=== PATIENT | male | born 1945 | race Caucasian/White ===

== ENCOUNTER → 2019-06-15 11:54 | Outpatient (CLI) | payer MEDICARE, SELFPAY ==
[2019-06-15 12:51] LABS: Add Manual Diff / Slide Review NO; Basophils Absolute Auto 0 /uL (0-100); Basophils Percent Auto 0.1 % (0-2); Eosinophils Absolute Auto 0 /uL (0-450); Hematocrit 36.7 % (41-53); Hemoglobin 12.1 g/dL (13.5-17.5); Lymphocytes Absolute Auto 1300 /uL (1100-4500); Lymphocytes Percent Auto 24.3 % (25-40); Mean Corpuscular HGB Conc 32.9 % (30-36); Monocytes Absolute Auto 400 /uL (0-900); Neutrophils Absolute Auto 3800 /uL (1500-7000); Neutrophils Percent Auto 68.6 % (50-75); Platelet Count 191 X10^3/uL (150-400); Red Blood Cell Count 4.32 X10^6/uL (4.5-5.9); Red Cell Distribution Width 14.5 % (11.6-14.8); White Blood Cell Count 5.5 X10^3/uL (4.5-11.0)
[2019-06-15 13:09] LABS: Hemoglobin A1C% w Est Avg Glu 6.9 % (4.0-6.0)
[2019-06-15 13:31] LABS: Carbon Dioxide 32 mmol/L (22-32); Chloride 102 mmol/L (98-107); HEMOLYSIS < 15 (0-50); Potassium 4.5 mmol/L (3.4-5.1); Sodium 141 mmol/L (137-145)
== END ==
PROVIDERS: PCP Student in an Organized Health Care Education/Training Program; Visit Provider Student in an Organized Health Care Education/Training Program
DX: R73.9 Hyperglycemia, unspecified (principal); Z01.812 Encounter for preprocedural laboratory examination; M17.12 Unilateral primary osteoarthritis, left knee
CPT/HCPCS: 36415; 80051; 83036; 85025

== ENCOUNTER 2019-09-02 10:55 | Inpatient (IN) | payer MEDICARE, SELFPAY ==
[2019-08-20 09:44] VITALS: BMI 37.3
[2019-09-02] VITALS (18 sets, daily range): BP systolic 125–187; BP diastolic 64–101; PULSE 73–97; RESP 12–18; TEMP 36.4–37.2; O2SAT 93–97; BMI 37.3
--- NOTE | 2019-09-02 10:45 | SUR.PREOP ---
Pt called stating that his surgery time and that he is a diabetic. CBG was 65 and pt had not had any long acting insulin since 09/01. After speaking with Dr Hogan, he okay'd pt to have some hard candy to get his blood sugars up for surgery.
--- NOTE | 2019-09-02 11:33 | PM.PREOP ---
Pre-operative Note Interval Note History & Physical reviewed/Exam performed by Physician: Yes Changes to H&P: No
--- NOTE | 2019-09-02 11:33 | PM.OP.1 ---
Operative Date/Time/Diagnoses Date of procedure: 09/02/19 Time of procedure: 14:46 Pre-op diagnosis: Left knee osteoarthritis Post-op diagnosis: same Procedure & Clinicians Procedure: Left total knee arthroplasty Same procedure as scheduled: Yes Indications: The patient presents today for total knee arthroplasty after failure of conservative treatment. The nature of the procedure including the risks and benefits, alternatives, postoperative course and expected outcome were discussed and all questions answered. Consent was obtained. Operative site confirmed and marked. Surgeon: Uriel Angeles Telephonic Nurse Case Manager: Gordon White Anesthesia Type: General, Spinal and Local Operative Notes Findings: Severe osteoarthritis with varus alignment. Closure Type: primary Specimen(s): none sent Prosthetic devices, grafts, tissues, transplants, or devices: Gatito Persona TKA 11 CR femoral component, F stemmed tibial component, 10 MC polyethylene tray and 35 mm all poly patella. Applied: implant(s) Estimated Blood Loss (mL): 20 Blood products transfused: none Tourniquet time (min): 60 Procedure in detail: The patient was taken to the operative suite and placed under spinal and general anesthesia. The patient was given prophylactic antibiotics prior to surgery. The patient was also given tranexamic acid, 1 g, just prior to surgery for postoperative hemostasis. The lateral knee was prepped and the joint injected with 20 mL of 1% Lidocaine with epinephrine. The knee was then prepped and draped in usual sterile fashion. The leg was exsanguinated with an Esmarch dressing and the tourniquet raised to 250 torr. A 15 cm anterior incision was made. Next a medial trivector arthrotomy was made. The extensor mechanism was marked to ensure accurate repair. Initial exposing dissection was carried out medially and laterally. The knee was then extended and the patellar thickness was measured and a cut made removing approximately 9 mm of bone. The patella was then sized and drilled. Some excess lateral bone was excised and the patellofemoral ligament released. The knee was then flexed and the intramedullary femoral guide kuldeep placed. The distal femoral cut was made in 5 ? of valgus at the + 0 position. The femoral size was measured and the appropriate cutting block was then placed and the anterior, posterior and chamfer cuts made. The extramedullary tibial alignment kuldeep was then placed. The guide was set to remove approximately 10 mm from the less affected lateral side. The proximal tibial cut was then made with an oscillating saw. All meniscus and bony debris was then removed. Posterior femoral osteophytes removed with a curved osteotome. Flexion extension gaps were checked. The knee was somewhat tight medially in flexion and extension this was corrected with percutaneous release of the MCL with an 18 gauge needle.. The soft tissues were then injected with a combination of 20 mL of half percent Marcaine with epinephrine and 20 mL of Exparel. The trial components were then placed. The knee seemed somewhat tight transitioning into flexion with initial range of motion. With the PCL and popliteus were released which seem to correct the motion. The knee was then ranged and went into full extension and flexion beyond 120?. There was good medial-lateral balance throughout motion. Patellar tracking was excellent. The trial components were removed and the knee was cleansed with Pulsavac irrigation and dried. The final components were cemented with high viscosity vacuum mixed bone cement with antibiotics. The joint was filled with a dilute Betadine solution. The knee was held in extension and the patellar clamped until the cement was fully cured. The knee was then irrigated. The extensor mechanism was closed with 5 interrupted #1 Vicryl sutures and a running Quill suture at 90 degrees of flexion. The joint was then injected with a combination of 1 g of tranexamic acid and 20 mL of quarter percent Marcaine with epinephrine. The subcutaneous tissue was closed with 2 0 Vicryl. The skin was closed with jessi and surgical adhesive. An Aquacel dressing and Adan wrap were then applied. The patient tolerated the procedure well and was returned to recovery room in good condition. Complications: none Post-operative Condition: stable Disposition: PACU Plan for aftercare: [facility] protocol for total knee arthroplasty.
--- NOTE | 2019-09-02 11:47 | DI.RAD.S_ITS ---
PROCEDURE: XR KNEE LT 1TO2V INDICATIONS: post op TKA TECHNIQUE: 2 view(s) of the knee acquired. COMPARISON: [facility], , KNEE 1-2 VIEWS RIGHT, 09/05/2009, 10:26. FINDINGS: Bones: Patient is status post knee joint arthroplasty. Hardware components are in expected positions. Visualized bony structures are intact. Soft tissues: Overlying postoperative changes are noted. IMPRESSION: Expected postoperative appearance Dictated by: David Juárez M.D. on 09/02/2019 at 15:55 Approved by: David Juárez M.D. on 09/02/2019 at 15:55
[2019-09-02] MEDS: LACTATED RINGERS 1,000 ML 42 ML IV (12:15)
[2019-09-02] MEDS: DEXTROSE 5% WATER 500 ML 21 ML IV (12:28)
--- NOTE | 2019-09-02 12:59 | SUR.PREOP ---
Block start time [1237] . Monitoring initiated and maintained throughout procedure. Oxygen and medications given per anesthesiologist instructions. Patient remained stable throughout procedure, no adverse reactions noted. Block end time [1250].
[2019-09-02] MEDS: CEFAZOLIN 2 GM/100 ML FROZ.PIGGY IV ×2 (13:05→21:22)
--- NOTE | 2019-09-02 13:42 | SUR.OPER ---
Supine on padded OR bed. Pillow under head, arms secured on padded armboards <90 degree abduction. Safety belt across torso. Non-operative leg secured with tape over blanket over lower leg. Operative leg secured in Samy positioner. Foam padded brace at thigh of operative leg.
[2019-09-02] MEDS: LIDOCAINE 1% W/EPI 20 ML INJ (13:48)
[2019-09-02] MEDS: EPINEPHRINE INJ (13:51)
[2019-09-02] MEDS: BUPIVACAINE 0.25% INJ (13:51)
[2019-09-02] MEDS: SODIUM CHLORIDE INJ (13:51)
[2019-09-02] MEDS: BUPIVACAINE 0.25% W/ EPI (PF) 40 ML, BUPIVACAINE LIPOSOME 266 MG, SODIUM CHLORIDE 0.9% ... INJ (13:52)
[2019-09-02] MEDS: SODIUM CHLORIDE IRRIG SOLUTION 250 ML, POVIDONE-IODINE SPONGE STICKS 1 APPLIC IRR (13:53)
[2019-09-02] MEDS: TRANEXAMIC ACID 1,000 MG VIAL 1000 MG INJ (13:58)
--- NOTE | 2019-09-02 14:07 | P.PCN_ITS ---
Procedures Date/Time Date of procedure: 09/02/19 Time of procedure: 12:45 General Procedure description: Ultrasound guided adductor canal nerve block for post op pain control after left total knee arthroplasty by Dr. Angeles. Risk and kim efits of procedure discussed with patient. ASA monitoring applied to patient. O2 given via nasal cannula. 1 mg Versed and 50 mcg fentanyl given for procedural sedation. Skin site was prepped with chlorhexidine and allowed to fully dry. Sterile gloves, mask, hat and probe cover were used to maintain sterility. 2% lidocaine and 30ga needle was used to make a small skin wheal at needle insertion site. Under ultrasound guidance, a 21ga 100mm Pajunk needle was directed into the adductor canal near femoral artery and saphenous nerve at the level of mid thigh. Patient reported no parasthesias. After negative aspiration, 20 mL 0.5% ropivicaine and 10mg dexamethasone were injected around saphenous ne rve. Patient tolerated procedure well.
--- NOTE | 2019-09-02 14:16 | SUR.PREOP ---
After opening Celabrix, lyrica and tylenol pt stated he was unable to take pills. Pt denies structure or issues with swallowing except for pills and stated he has always been like this since he was a child. He can take them crushed or with applesauce just not whole with water. Lyrica was wasted per protocol. PACU advised that pt may want to take post procedure.
--- NOTE | 2019-09-02 15:40 | SUR.PHASEI ---
Patient BG 97 on arrival in PACU. Per the anesthesiologist, patient BG dropped to 60 in OR. Patient has implanted device that measures BG with meter that reads every 10 minutes.
--- NOTE | 2019-09-02 15:58 | SUR.PHASEI ---
Patients' monitor and [facility] BG monitor do not correlate, but patient is shivering and sweating and states he feels symptomatic> Per patient monitor: 70; per [facility] 107 BG.
--- NOTE | 2019-09-02 17:07 | PC.NURSE ---
1650: Patient admitted to room 217 from PACU with RN, awake, alert, and pleasant. Upon arrival, BG 130 mg/dl via implanted monitor. Oriented to room, environment, and plan of care. Call light within reach. Will continue to monitor blood glucose closely including s/sx of hypo and hyperglycemia.
[2019-09-02] MEDS: LACTATED RINGERS 1,000 ML 125 ML IV (17:25)
[2019-09-02] MEDS: ACETAMINOPHEN 325 MG TABLET 975 MG PO ×2 (17:27→21:22)
--- NOTE | 2019-09-02 17:29 | PC.NURSE ---
09/02 Patient had his own blood sugar port implant and machine. RN aware.
[2019-09-02] MEDS: INSULIN ASPART 100 UNIT/ML INSULN PEN SUBCUT ×2 (19:08→21:21)
[2019-09-02] MEDS: ATORVASTATIN 20 MG TABLET PO (21:22)
[2019-09-02] MEDS: TERAZOSIN 5 MG CAPSULE 10 MG PO (21:23)
[2019-09-02] MEDS: METOPROLOL IR 25 MG TABLET PO (21:24)
[2019-09-03] VITALS (7 sets, daily range): BP systolic 139–152; BP diastolic 66–77; PULSE 84–93; RESP 16–20; TEMP 36.2–37.3; O2SAT 94–98
[2019-09-03] MEDS: CEFAZOLIN 2 GM/100 ML FROZ.PIGGY IV (04:38)
[2019-09-03 07:10] LABS: Hematocrit 36.4 % (41-53); Hemoglobin 12.3 g/dL (13.5-17.5)
--- NOTE | 2019-09-03 07:36 | PM.PNPO.1 ---
Subjective Subjective Date Patient Seen: 09/03/19 Time Patient Seen: 07:36 Interval history: POD #1 s/p L TKA with Dr. Angeles. Patient has been mobilizing with PT this morning. His pain is well controlled. He lives at home alone. He is diabetic. Exam Vital Signs (past 8 hours): - 09/03/19 04:34 Temperature 97.1 F L Pulse Rate 88 Respiratory Rate 16 Blood Pressure 139/75 Pulse Oximetry 96 Oxygen Delivery Method Room Air Oxygen Flow Rate 0 Narrative Exam Narrative: Patient lying in bed in NAD. Alert orient x3. Calves are soft, compressible, nontender bilaterally. Pulses are symmetrical. Sensation intact light touch throughout bilateral lower extremities. He is able actively dorsiflex plantar flex. Objective Labs Result Diagrams: 09/03/19 06:35 Labs: Laboratory Results - last 24 hr 09/03/19 06:35 Hgb 12.3 L Hct 36.4 L Assessment & Plan Post-op Postoperative Procedures: Procedures Operation Date: 09/02/19 13:15 Actual Procedures Side Surgeon p Total Knee Arthroplasty LEFT Left Uriel Angeles MD patient will continue mobilize with physical therapy today. Continue current pain control. Continue to use aspirin. If patient is mobilizing safely, and pain adequately controlled he may discharge home tomorrow. Quality VTE Deep Vein Thrombosis/Pulmonary Embolism Present on Admission: No
[2019-09-03] MEDS: ACETAMINOPHEN 325 MG TABLET 975 MG PO ×3 (08:09→21:47)
[2019-09-03] MEDS: METOPROLOL IR 25 MG TABLET PO ×2 (08:10→21:51)
[2019-09-03] MEDS: OXYCODONE IR 5 MG TABLET 10 MG PO ×3 (08:10→17:29)
[2019-09-03] MEDS: INSULIN ASPART 100 UNIT/ML INSULN PEN SUBCUT ×4 (08:19→22:00)
[2019-09-03] MEDS: Insulin Glargine U-300 Conc [Toujeo Max U-300 Solostar] 46 EACH SUBCUT (08:36)
--- NOTE | 2019-09-03 10:40 | PT.IIE ---
Current Diagnoses Unilateral primary osteoarthritis, left knee (09/02/19) Presence of right artificial knee joint (09/02/19) Surgery Performed Operation Date: 09/02/19 13:15 Actual Procedures p Total Knee Arthroplasty LEFT(Left) - Uriel Angeles MD Surgical History (Last Updated 08/21/19 @ 12:52 by Judie Em RN) H/O transurethral resection of prostate (Acute) History of arthroplasty of right knee (Acute ~2008) Hx of appendectomy (Acute) Hx of tonsillectomy (Acute) Medical History (Last Updated 08/26/19 @ 07:47 by Judie Em RN) Allergic rhinitis (Chronic) Anxiety about health (Acute) Atrial flutter (Acute) BPH (benign prostatic hyperplasia) (Chronic) Diabetes (Acute) Diabetic neuropathy (Chronic) Diabetic retinopathy (Chronic) Hyperlipidemia (Chronic) Hypertension (Chronic) Hypoglycemia (Acute) Memory deficit (Acute) Obesity (Chronic) Rhinitis, non-allergic (Chronic) Sleep apnea treated with nocturnal BiPAP (Acute) Snoring (Inactive) Physical Therapy Inpatient Evaluation/Re-Eval M1 PT/OT-IP Prior Functional Status Start: 09/03/19 10:10 Freq: NEEDED Status: Active Protocol: Document 09/03/19 10:11 NFW (Rec: 09/03/19 10:39 NFW [id number]) Medical Review Prior Functional Status Medical History Reviewed Yes Communication Answering all questions appropriately. No problems with communication. Mobility and Gait Prior to surgery did not use any walking aids. Would keep a cane in the car should he have to walk on uneven ground. Activities of Daily Living and IADL's Prior to surgery independent in all ADL's and IADL's. Prior Functional Level (Other details) Drove as needed. Shared cooking and grocery shopping with significant other. Social History Household Members none Living Arrangements House Number of Floors (Floors) 3 or More Floors Number of Stairs To Enter/Railing? 5 steps to back door but has a full ramp as well with handrails both sides. Home Environment Standard Height Toilet,Tub/ Shower,Ramp Home Equipment Front Wheel Walker,Straight Cane,Grab Bars Near Toilet Employment Status Retired Additional Social History Comment Patient lives on [address] and can live on the main floor of his home. He has been since 2004. He does have a significant other that has her own [place] on [address] [place]. M2 PT-IP Current Condition Start: 09/03/19 10:10 Freq: NEEDED Status: Active Protocol: Document 09/03/19 10:11 NFW (Rec: 09/03/19 10:39 NF [id number]) Physical Therapy Current Condition Current Condition Evaluation Date 09/03/19 Treatment Diagnosis s/p Left TKA secondary to OA Weight Bearing Status Weight Bearing Status Full Weight Bearing M3 PT-IP Subjective Start: 09/03/19 10:10 Freq: NEEDED Status: Active Protocol: Document 09/03/19 10:11 NFW (Rec: 09/03/19 10:39 NF [id number]) Subjective Physical Therapy Visit Type Type Initial Evaluation Visit Start Time 09:20 Visit Stop Time 10:10 Total Visit Minutes 50 Number of LABORATORY SAMPLER Visits 0 Physical Therapy Visit Comments Patient Comments Patient feeling positive about recent surgery. Had rt TKA in 2008 and feels that he is more advanced at this time in comparison. Patient Goals terminal [place] goal to return to is home. Short term to progress to SNF since he lives alone. Therapy Pain Assessment Pain When Pain Assessed At Rest Pain Present Pain Present Pain Reported Location Left Knee Intensity 1 Scale Used Numeric (1 - 10) Description Aching M4 PT-IP Mobility and Gait Start: 09/03/19 10:10 Freq: NEEDED Status: Active Protocol: Document 09/03/19 10:11 NFW (Rec: 09/03/19 10:39 NF [id number]) PT-Bed Mobility Assessment Rolling Type of Rolling Bilateral Level of Assist Independent Supine to Sit Supine to Sit Standby Assistance,1 Person Assistance Sit to Supine Sit to Supine Standby Assistance,1 Person Assistance Scooting Scooting to Edge of Bed Independent Scooting Up and Down in Bed Independent PT-Transfer Assessment Sit to and From Stand Sit to and from Stand Standby Assistance,1 Person Assistance,Use of Upper Extremities Equipment Transfer Assistive Device Front Wheeled Walker Orthotic/Prosthetic Devices or Brace: No Transfers Transfer Destination Bed,Chair Transfer Technique Stand Step Pivot Transfer Ability Level of Assist Standby Assistance,1 Person Assistance,Use of Upper Extremities Comments Mobility Comments Patient requires cuing for proper technique with transitional activities. Follows instructions well. Gait Assessment Gait Gait Assistance Required: Standby Assistance,1 Person Assist Distance (Feet) 120 Able to Maintain Weight Bearing Status Yes During Gait Assistive Devices Assistive Device Gait Belt,Front Wheeled Walker Orthotic/Prosthetic Devices or Brace: No Gait Deviations General Gait Pattern Antalgic,Decreased Stride Length,Decreased Feet Clearance,Flexed Trunk,Wide Based Gait Factors Limiting Gait Function Factors Limiting Gait Function Abnormal Tonal Influences, Decreased Activity Tolerance, Decreased Sensation,Decreased Strength,Limited Range of Motion,Pain,Poor Balance Comments Gait Comments Patient ambulated 60' x2 with FWW and SBA. Cuing for upright posture and for proper hip and knee flexion at the initiation of swing phase of LLE. M5 PT-IP Objective Assessments Start: 09/03/19 10:10 Freq: NEEDED Status: Active Protocol: Document 09/03/19 10:11 NFW (Rec: 09/03/19 10:39 [facility] [id number]) Orientation Orientation/Cognition Level of Alertness Alert Orientation Name,Age,Place,Situation Language Function Ability No Deficits Noted Safety Awareness Understands Safety Issues Memory Description No Deficits Noted Gross Range of Motion Lower Extremity ROM Assessment Left Impaired Impairments Full functional knee extension . Flexion approximately 90-95 degrees notes with heel slides. Strength Upper Extremity Strength Assessment Within Functional Limits Lower Extremity Strength Assessment Left Impaired Comments Strength Comments Able to attain good quad set. Difficulty at this time with SLR or TKE. Will review these this pm. Sensation Assessment Sensation Gross Sensation WNL Light Touch Intact Proprioception (Position) Intact Muscle Tone Muscle Tone WNL Yes M6 PT-IP Treatment Start: 09/03/19 10:10 Freq: NEEDED Status: Active Protocol: Document 09/03/19 10:11 NFW (Rec: 09/03/19 10:39 [facility] [id number]) Physical Therapy Treatment Exercises Exercises Ankle Pumps,Quad Sets,Heel Slides Knee ROM Measurement Full functional extension to 90-95 degrees flexion Education Education Provided Weight Bearing Status,Post-Op Packet M7 PT-IP Assessment and Plan Start: 09/03/19 10:10 Freq: NEEDED Status: Active Protocol: Document 09/03/19 10:11 NFW (Rec: 09/03/19 10:39 [facility] [id number]) PT Summary Assessment and Plan Potential Rehabilitation Potential Excellent Status of Condition at Evaluation Evolving Summary Impairments Pain,ROM,Strength,Balance, Coordination,Transfers,Gait, Activity Tolerance Progress Towards Goals Progressing Toward Goals Assessment Summary Pt s/p left TKA with residual post op pain minimal at rest but increases to a level of 7 with wt bearing. Guarded with LLE in ambulation especially during swing phase with hesitation in knee flexion. Goals Bed Mobility Goal Independent Transfer Goal Independent Gait Goal Independent,Front Wheel Walker Gait Distance 300 Days to Meet Goals 2 Frequency of Treatment Frequency Of Treatment Twice a Day Treatment Plan Physical Therapy Treatment Plan Bed Mobility Training,Transfer Training,Gait Training, Therapeutic Exercise,Balance Retraining,Post Op Education, Discharge Planning, Coordination Retraining Other Recommendations and Next Treatment Add TKE and SLR to HEP Focus Recommendations To Nursing Amount of Assist Needed Standby Assistance,1 Person Assist Discharge Recommendations PT Discharge Recommendations SNF Rehab
--- NOTE | 2019-09-03 14:25 | PT.IPTN ---
Current Diagnoses Unilateral primary osteoarthritis, left knee (09/02/19) Presence of right artificial knee joint (09/02/19) Surgery Performed Operation Date: 09/02/19 13:15 Actual Procedures p Total Knee Arthroplasty LEFT(Left) - Uriel Angeles MD Physical Therapy Treatment Note M2 PT-IP Current Condition Start: 09/03/19 10:10 Freq: NEEDED Status: Active Protocol: Document 09/03/19 10:11 NFW (Rec: 09/03/19 10:39 NFW [id number]) Physical Therapy Current Condition Current Condition Evaluation Date 09/03/19 Treatment Diagnosis s/p Left TKA secondary to OA Weight Bearing Status Weight Bearing Status Full Weight Bearing M3 PT-IP Subjective Start: 09/03/19 10:10 Freq: NEEDED Status: Active Protocol: Document 09/03/19 14:11 NFW (Rec: 09/03/19 14:25 NFW [id number]) Subjective Physical Therapy Visit Type Type Treatment Note Visit Start Time 13:25 Visit Stop Time 14:10 Total Visit Minutes 45 Number of TOBACCO SIEVE OPERATOR Visits 0 Physical Therapy Visit Comments Patient Comments No complaints, ready to proceed with treatment. Patient Goals States that he feels that he can return home vs SNF. M4 PT-IP Mobility and Gait Start: 09/03/19 10:10 Freq: NEEDED Status: Active Protocol: Document 09/03/19 14:11 NFW (Rec: 09/03/19 14:25 NFW [id number]) PT-Bed Mobility Assessment Rolling Type of Rolling Bilateral Level of Assist Independent Supine to Sit Supine to Sit Independent Sit to Supine Sit to Supine Independent Scooting Scooting to Edge of Bed Independent Scooting Up and Down in Bed Independent PT-Transfer Assessment Sit to and From Stand Sit to and from Stand Standby Assistance,1 Person Assistance,Use of Upper Extremities Equipment Transfer Assistive Device Front Wheeled Walker Orthotic/Prosthetic Devices or Brace: No Transfers Transfer Destination Bed,Chair Transfer Ability Level of Assist Standby Assistance,1 Person Assistance,Use of Upper Extremities Comments Mobility Comments Minimal cuing required with bed mobilities this afternoon. Gait Assessment Gait Gait Assistance Required: Standby Assistance,1 Person Assist Distance (Feet) 600 Able to Maintain Weight Bearing Status Yes During Gait Assistive Devices Assistive Device Gait Belt,Front Wheeled Walker Orthotic/Prosthetic Devices or Brace: No Gait Deviations General Gait Pattern Antalgic,Decreased Stride Length,Decreased Feet Clearance,Flexed Trunk,Wide Based Gait Factors Limiting Gait Function Factors Limiting Gait Function Abnormal Tonal Influences, Decreased Activity Tolerance, Decreased Sensation,Decreased Strength,Limited Range of Motion,Pain,Poor Balance Comments Gait Comments Gait form improved, does exhibit a left medial list on the left, able to correct with concentration. Improved hip and knee flexion at swing on LLE. M5 PT-IP Objective Assessments Start: 09/03/19 10:10 Freq: NEEDED Status: Active Protocol: Document 09/03/19 10:11 NFW (Rec: 09/03/19 10:39 NF [id number]) Orientation Orientation/Cognition Level of Alertness Alert Orientation Name,Age,Place,Situation Language Function Ability No Deficits Noted Safety Awareness Understands Safety Issues Memory Description No Deficits Noted Gross Range of Motion Lower Extremity ROM Assessment Left Impaired Impairments Full functional knee extension . Flexion approximately 90-95 degrees notes with heel slides. Strength Upper Extremity Strength Assessment Within Functional Limits Lower Extremity Strength Assessment Left Impaired Comments Strength Comments Able to attain good quad set. Difficulty at this time with SLR or TKE. Will review these this pm. Sensation Assessment Sensation Gross Sensation WNL Light Touch Intact Proprioception (Position) Intact Muscle Tone Muscle Tone WNL Yes M6 PT-IP Treatment Start: 09/03/19 10:10 Freq: NEEDED Status: Active Protocol: Document 09/03/19 14:11 NFW (Rec: 09/03/19 14:25 [facility] [id number]) Physical Therapy Treatment Exercises Exercises Ankle Pumps,Quad Sets,Heel Slides,Straight Leg Raises, Short Arc Quads M7 PT-IP Assessment and Plan Start: 09/03/19 10:10 Freq: NEEDED Status: Active Protocol: Document 09/03/19 14:11 NFW (Rec: 09/03/19 14:25 [facility] [id number]) PT Summary Assessment and Plan Summary Assessment Summary Improved form with transitional activities. Increased ambulation to 600' from 120'. Good understanding of HEP. Frequency of Treatment Frequency Of Treatment Twice a Day Treatment Plan Physical Therapy Treatment Plan Bed Mobility Training,Transfer Training,Gait Training, Therapeutic Exercise,Balance Retraining,Post Op Education, Discharge Planning, Coordination Retraining Other Recommendations and Next Treatment Review all exercises. Adjust Focus patient's own FWW, will bring 09/04. Discharge Recommendations PT Discharge Recommendations Home with Assistance
--- NOTE | 2019-09-03 14:29 | CM.DANOTE ---
DCP: Case received, EMR reviewed and met with patient. Introduced self and role. Patient's significant other, Kayla, was in room as well. Was able to obtain information from patient regarding his baseline functions, and living situation. DCP assessment was completed with information currently available. Patient is a 74 year old male who admitted yesterday morning to the care of the orthopedic team. PCP: Dr. Knott. Payer: confirmed: [employer]. Patient was admitted to the hospital for a surgical procedure. He had a left total knee arthroplasty. Patient has had history of left knee osteoarthritis, and elected to have this surgery. Met with patient and significant other in room. Patient alert and oriented, was in bed, but had just worked with physical therapist. Confirmed with patient that he lives alone, but has his significant other, Kayla, who also lives in [place]. Patient has been independent, as well as driving, prior to surgery. Kayla will be staying with patient for a few days after he discharges. P: DCP to continue to follow. Patient may be discharging home tomorrow, as long as he is medically stable and cleared by physical therapy team. Juany Lawson RN/Dressage Instructor
[2019-09-03] MEDS: ATORVASTATIN 20 MG TABLET PO (21:50)
[2019-09-03] MEDS: CANDESARTAN 16 MG TABLET 32 MG PO (21:52)
[2019-09-03] MEDS: TERAZOSIN 5 MG CAPSULE 10 MG PO (21:54)
--- NOTE | 2019-09-04 02:51 | PC.NURSE ---
Addendum entered by Ronda Ray R.N. 09/04/19 06:50: Woke up in 08/11 burning pain behind left knee; medicated with Oxycodone and ice packs applied. Addendum entered by Ronda Ray R.N. 09/04/19 05:25: Complaining of feeling nauseated. States he gets this feeling intermittently and has been told it is because he doesn't drink enough water. Normally takes a Tums and nausea resolves. CBG 265 per his personal CBG monitor. Medicated with Zofran ODT. Original Note: Patient is alert and oriented. Breath sounds CTA with sat of 94%; currently using CPAP. HRR with elevated BP but stable at 143/66. Denies nausea. BT present and has already had BM following surgery. Voiding per urinal; denies dysuria, frequency or urgency. Able to turn self in bed. Aquacel + denisse wrap to left knee is CDI. Denies pain but does complain of stiffness; declines pain med and/or ice pack. Chronic bilateral foot neuropathy unchanged otherwise CMS is intact. Wearing bilateral foot SCD's. Fall risk score is high and bed alarm is activated.
[2019-09-04 05:15] VITALS: BP 166/82; PULSE 65; RESP 16; TEMP 37.6; O2SAT 96
[2019-09-04] MEDS: ONDANSETRON 4 MG ODT PO (05:23)
[2019-09-04] MEDS: OXYCODONE IR 5 MG TABLET 10 MG PO ×2 (06:44→11:24)
[2019-09-04 08:15] VITALS: BP 170/78; PULSE 94; RESP 20; TEMP 37.6; O2SAT 97
--- NOTE | 2019-09-04 08:30 | PM.DS.1 ---
History of Present Illness History of Present Illness Date Patient Seen: 09/04/19 Time Patient Seen: 08:30 Chief complaint: [id number] Left Total Knee Arthroplasty Narrative: Hospital day 3, postop day 2 following left total knee arthroplasty. Patient has remained stable. He has worked with physical therapy and they feel he is stable for home. He does complain of some increased knee pain today. Patient lives on [facility] by himself but does have a significant other that will be staying with him for the next few days. He is diabetic and has not had good glucose control while here in the hospital but he thinks he will be able to do better home. He does have a continuous glucose monitor in place. He is scheduled go to [facility]. He is a [facility] patient but does not have postop pain meds at home. Discharge Providers Provider Date of admission: 09/02/19 10:55 Discharge Date: 09/04/19 Primary care physician: Myles Knott MD Consults: 09/02/19 16:36 Consult to Discharge Planning Routine Comment: Consult to Physical Therapy Evaluate & Treat Comment: Physician Instructions: postop TKA protocol Consult to Respiratory Therapy Evaluate & Treat Comment: Physician Instructions: Evaluate and treat 09/02/19 17:05 Consult to Pastoral Services Routine Comment: would like a visit if chaplan not busy Consult to Form Tamping Machine Operator Routine Comment: Discharge provider: Patricio Brewster PA-C Summary Hospital Course Discharge Diagnosis: Status post left total knee arthroplasty Hospital Course: Patient brought to hospital on 09/02/2019 for above noted surgery. He remained stable postoperatively. Did well with a PT. Ready for discharge home on postop day 2. Status at Discharge Cognitive/behavioral status at discharge: oriented Functional status at discharge: uses cane/walker Overall status at discharge: patient is progressing back to baseline Time Spent with Patient Time spent: Less than 30 minutes Exam Vital Signs (past 8 hours): - 09/04/19 05:15 Temperature 99.6 F Pulse Rate 65 Respiratory Rate 16 Blood Pressure 166/82 H Pulse Oximetry 96 Oxygen Delivery Method CPAP Oxygen Flow Rate 0 Narrative Exam Narrative: Alert, oriented no acute distress lying in bed. Um left leg. Adan wrap an Aquacel dressing to left knee is dry without drainage or inflammation. Mild swelling of the knee and lower leg. Six calf is soft and nontender. Good pulses distally. Objective Labs Result Diagrams: 09/03/19 06:35 Discharge Plan Discharge Plan Patient Disposition: Home Discharge comment: Discharge home today after cleared by PT. He is planning on going home this afternoon with win at 1600 hours. He is a [facility] patient. Given prescription for oxycodone. Discharge Med Rec/Prescriptions Prescriptions: New acetaminophen 325 mg Tablet 975 mg PO TID Qty: 30 RF: 0 oxycodone 5 mg Tablet 10 mg PO Q3HR PRN (Reason: Pain, Moderate (4-6)) Qty: 40 RF: 0 Continued candesartan 32 mg Tablet 32 mg PO BEDTIME RF: 0 insulin lispro [Humalog KwikPen Insulin] 100 unit/mL Insulin Pen 8 - 20 unit SUBCUT TID RF: 0 Toujeo Max U-300 SoloStar 300 unit/mL (3 mL) Insulin Pen 46 unit SUBCUT QAM RF: 0 Xarelto 20 mg Tablet 20 mg PO BEDTIME RF: 0 atorvastatin 20 mg tablet 20 mg PO BEDTIME RF: 0 terazosin 10 mg capsule 10 mg PO BEDTIME RF: 0 metoprolol tartrate 25 mg tablet 25 mg PO BID RF: 0 Discontinued acetaminophen [Tylenol Extra Strength] 500 mg Tablet 1,000 mg PO BID RF: 0 Follow up/Referrals: Myles Knott MD [Primary Care Provider] - Provider Discharge Instructions Diet: Diet as Tolerated and Carb-consistent/Diabetic Activity: Ambulate as tolerated. Use walker as needed. Range of motion of left knee as much as possible. Cold/Heat Therapy: Cold pack to left knee as needed. Skin/Wound/Dressing Care Report to your healthcare provider any signs of infection, such as:: chills, fever, night sweats, increased pain, unusual drainage and unusual redness Dressing: Keep Aquacel dressing in place until postop visit. Visit Report/Discharge Packet Instructions: DI for Knee Replacement Discharge Data Primary Care Provider: Myles Knott Quality VTE Deep Vein Thrombosis/Pulmonary Embolism Present on Admission: No
[2019-09-04] MEDS: ACETAMINOPHEN 325 MG TABLET 975 MG PO ×3 (09:21→20:16)
[2019-09-04] MEDS: SODIUM CHLORIDE 0.9% FLUSH 10 ML IV ×2 (09:22→20:17)
[2019-09-04] MEDS: INSULIN ASPART 100 UNIT/ML INSULN PEN SUBCUT ×4 (09:22→20:22)
[2019-09-04] MEDS: METOPROLOL IR 25 MG TABLET PO ×2 (09:22→20:17)
[2019-09-04] MEDS: Insulin Glargine U-300 Conc [Toujeo Max U-300 Solostar] 46 EACH SUBCUT (09:25)
[2019-09-04 10:45] VITALS: BP 152/69; PULSE 95; RESP 22; TEMP 37.6; O2SAT 95
--- NOTE | 2019-09-04 12:04 | PT.IPTN ---
Current Diagnoses Unilateral primary osteoarthritis, left knee (09/02/19) Presence of right artificial knee joint (09/02/19) Surgery Performed Operation Date: 09/02/19 13:15 Actual Procedures p Total Knee Arthroplasty LEFT(Left) - Uriel Angeles MD Physical Therapy Treatment Note M2 PT-IP Current Condition Start: 09/03/19 10:10 Freq: NEEDED Status: Active Protocol: Document 09/03/19 10:11 NFW (Rec: 09/03/19 10:39 NFW [id number]) Physical Therapy Current Condition Current Condition Evaluation Date 09/03/19 Treatment Diagnosis s/p Left TKA secondary to OA Weight Bearing Status Weight Bearing Status Full Weight Bearing M3 PT-IP Subjective Start: 09/03/19 10:10 Freq: NEEDED Status: Active Protocol: Document 09/04/19 10:00 HH (Rec: 09/04/19 12:04 [email or web address]) Subjective Physical Therapy Visit Type Type Treatment Note Visit Start Time 10:00 Visit Stop Time 10:30 Total Visit Minutes 30 Notes pt's attended session Number of PROPAGATION MANAGER Visits 0 Physical Therapy Visit Comments Patient Comments Pt had pain meds earlier and stated he has more pain and disoriented today possibly due to med effect. Therapy Pain Assessment Pain When Pain Assessed During Mobility Pain Present Pain Present Pain Reported Location Left Knee Intensity 5 Scale Used Numeric (1 - 10) Description Acute Pain Management Techniques Apply Cold,Modification of Treatment,Re-positioning, Timing of Activity with Medications M4 PT-IP Mobility and Gait Start: 09/03/19 10:10 Freq: NEEDED Status: Active Protocol: Document 09/04/19 10:00 HH (Rec: 09/04/19 12:04 [email or web address]) PT-Bed Mobility Assessment Sit to Supine Sit to Supine Minimal Assistance,1 Person Assistance Scooting Scooting to Edge of Bed Standby Assistance Scooting Up and Down in Bed Standby Assistance PT-Transfer Assessment Sit to and From Stand Sit to and from Stand Contact Guard Assistance, Minimal Assistance,1 Person Assistance,Use of Upper Extremities Equipment Transfer Assistive Device Front Wheeled Walker Orthotic/Prosthetic Devices or Brace: No Transfers Transfer Destination Bed,Chair Transfer Ability Level of Assist Contact Guard Assistance, Minimal Assistance,1 Person Assistance,Use of Upper Extremities Comments Mobility Comments Pt appears to have more pain today with decreased AROM at his L knee. Pt sat up at EOB upon assessment. He appears slower in general due to pain. He got up from EOB with min A and primarily WB through RLE. He went to bathroom and return to bedside chair due to fatgiue. He demonstrated poor eccentric control while stand to sit. He was able to transfer from chair to w/c twice with min A. He also needed min A to pivot his L LE for sit to supine at the end of session. Gait Assessment Gait Gait Assistance Required: Contact Guard Assist,1 Person Assist Distance (Feet) 20 Able to Maintain Weight Bearing Status Yes During Gait Assistive Devices Assistive Device Gait Belt,Front Wheeled Walker Orthotic/Prosthetic Devices or Brace: No Gait Deviations General Gait Pattern Antalgic,Decreased Stride Length,Decreased Feet Clearance,Flexed Trunk,Wide Based Gait Factors Limiting Gait Function Factors Limiting Gait Function Abnormal Tonal Influences, Decreased Activity Tolerance, Decreased Sensation,Decreased Strength,Limited Range of Motion,Pain,Poor Balance Comments Gait Comments Pt only amb in his room due to knee pain. Increased antalgic gait noticed with decreased gait speed and stride length. Stair Climbing Assessment Evaluation Level of Assist On Stairs Minimal Assistance,1 Person Assistance Devices Stair Climbing Assistive Devices Left Railing,Right Railing Technique/Endurance Stair Climbing Direction Ascend and Descend Stair Climbing Technique Step to Step Number of Steps Climbed 1 Comments Stair Climbing Comments Pt did one step but noticed shakiness of his L knee. Pt stated' I feel weak and about to buckle M5 PT-IP Objective Assessments Start: 09/03/19 10:10 Freq: NEEDED Status: Active Protocol: Document 09/03/19 10:11 NF (Rec: 09/03/19 10:39 NFW [id number]) Orientation Orientation/Cognition Level of Alertness Alert Orientation Name,Age,Place,Situation Language Function Ability No Deficits Noted Safety Awareness Understands Safety Issues Memory Description No Deficits Noted Gross Range of Motion Lower Extremity ROM Assessment Left Impaired Impairments Full functional knee extension . Flexion approximately 90-95 degrees notes with heel slides. Strength Upper Extremity Strength Assessment Within Functional Limits Lower Extremity Strength Assessment Left Impaired Comments Strength Comments Able to attain good quad set. Difficulty at this time with SLR or TKE. Will review these this pm. Sensation Assessment Sensation Gross Sensation WNL Light Touch Intact Proprioception (Position) Intact Muscle Tone Muscle Tone WNL Yes M6 PT-IP Treatment Start: 09/03/19 10:10 Freq: NEEDED Status: Active Protocol: Document 09/03/19 14:11 NFW (Rec: 09/03/19 14:25 NFW [id number]) Physical Therapy Treatment Exercises Exercises Ankle Pumps,Quad Sets,Heel Slides,Straight Leg Raises, Short Arc Quads M7 PT-IP Assessment and Plan Start: 09/03/19 10:10 Freq: NEEDED Status: Active Protocol: Document 09/04/19 10:00 HH (Rec: 09/04/19 12:04 HH [id number]) PT Summary Assessment and Plan Potential Rehabilitation Potential Excellent Status of Condition at Evaluation Evolving Summary Assessment Summary Signficant decrease in activity tolerance, amb distance and overall mobility due to increased pain today. Pt's was planning to drive him back to home with her RV which has 3 high steps to enter. However, pt was not capable to climb step at all today. Discussed with pt and his spouse about SNF option to cont rehab. They both are opened to it at this point due to their safety concern. Notified LIZZ Valencia regarding pt 's performance. Goals Bed Mobility Goal Contact Guard Assistance Transfer Goal Contact Guard Assistance Gait Goal Contact Guard Assistance,Front Wheel Walker Gait Distance 300 Days to Meet Goals 5 Frequency of Treatment Frequency Of Treatment Twice a Day Treatment Plan Physical Therapy Treatment Plan Bed Mobility Training,Transfer Training,Gait Training, Therapeutic Exercise,Balance Retraining,Post Op Education, Discharge Planning, Coordination Retraining Other Recommendations and Next Treatment Review all exercises. Focus transfer , gait training and stair climbing as osbaldo Recommendations To Nursing Amount of Assist Needed 1 Person Assist Discharge Recommendations PT Discharge Recommendations SNF Rehab Other Discharge Recommendations Discussed with pt and his spouse about SNF option to cont rehab. They both are opened to it at this point due to their safety concern. Notified LIZZ Valencia regarding pt 's performance.
--- NOTE | 2019-09-04 15:40 | PT.IPTN ---
Current Diagnoses Unilateral primary osteoarthritis, left knee (09/02/19) Presence of right artificial knee joint (09/02/19) Surgery Performed Operation Date: 09/02/19 13:15 Actual Procedures p Total Knee Arthroplasty LEFT(Left) - Uriel Angeles MD Physical Therapy Treatment Note M2 PT-IP Current Condition Start: 09/03/19 10:10 Freq: NEEDED Status: Active Protocol: Document 09/03/19 10:11 NFW (Rec: 09/03/19 10:39 NFW [id number]) Physical Therapy Current Condition Current Condition Evaluation Date 09/03/19 Treatment Diagnosis s/p Left TKA secondary to OA Weight Bearing Status Weight Bearing Status Full Weight Bearing M3 PT-IP Subjective Start: 09/03/19 10:10 Freq: NEEDED Status: Active Protocol: Document 09/04/19 15:40 GGD (Rec: 09/04/19 16:12 GGD [id number]) Subjective Physical Therapy Visit Type Type Treatment Note Visit Start Time 15:00 Visit Stop Time 15:40 Total Visit Minutes 40 Number of AIRPLANE FLIGHT ATTENDANT Visits 1 Physical Therapy Visit Comments Patient Comments Pt states he was unable to do steps and not sure if he can get into RV to go home. Therapy Pain Assessment Pain When Pain Assessed During Mobility Pain Present Pain Present Pain Reported M4 PT-IP Mobility and Gait Start: 09/03/19 10:10 Freq: NEEDED Status: Active Protocol: Document 09/04/19 15:40 GGD (Rec: 09/04/19 16:12 GGD [id number]) PT-Bed Mobility Assessment Supine to Sit Supine to Sit Standby Assistance,1 Person Assistance Sit to Supine Sit to Supine Contact Guard Assistance,1 Person Assistance Scooting Scooting to Edge of Bed Standby Assistance PT-Transfer Assessment Sit to and From Stand Sit to and from Stand Contact Guard Assistance, Minimal Assistance,1 Person Assistance,Use of Upper Extremities Equipment Transfer Assistive Device Gait Belt,Front Wheeled Walker Orthotic/Prosthetic Devices or Brace: No Transfers Transfer Destination Bed,Wheelchair Transfer Ability Level of Assist Contact Guard Assistance, Minimal Assistance,1 Person Assistance,Use of Upper Extremities Comments Mobility Comments Pt had LOB with sit to stand, needing Min A. Gait Assessment Gait Gait Assistance Required: Contact Guard Assist,1 Person Assist Distance (Feet) 130 Able to Maintain Weight Bearing Status Yes During Gait Assistive Devices Assistive Device Gait Belt,Front Wheeled Walker Orthotic/Prosthetic Devices or Brace: No Gait Deviations General Gait Pattern Antalgic,Decreased Stride Length,Decreased Feet Clearance,Flexed Trunk,Wide Based Gait Factors Limiting Gait Function Factors Limiting Gait Function Abnormal Tonal Influences, Decreased Activity Tolerance, Decreased Sensation,Decreased Strength,Limited Range of Motion,Pain,Poor Balance Comments Gait Comments Pt ambulated 40 feet and then 90 feet Stair Climbing Assessment Evaluation Level of Assist On Stairs Contact Guard Assistance, Minimal Assistance,1 Person Assistance Devices Stair Climbing Assistive Devices Left Railing,Right Railing Technique/Endurance Stair Climbing Direction Ascend and Descend Stair Climbing Technique Step to Step Number of Steps Climbed 3 Stair Climbing Set # Repetitions (reps) 2 Comments Stair Climbing Comments Pt ambulate stair with b rail with CGA and then right both UE on right rail. M5 PT-IP Objective Assessments Start: 09/03/19 10:10 Freq: NEEDED Status: Active Protocol: Document 09/03/19 10:11 NFW (Rec: 09/03/19 10:39 NFW [id number]) Orientation Orientation/Cognition Level of Alertness Alert Orientation Name,Age,Place,Situation Language Function Ability No Deficits Noted Safety Awareness Understands Safety Issues Memory Description No Deficits Noted Gross Range of Motion Lower Extremity ROM Assessment Left Impaired Impairments Full functional knee extension . Flexion approximately 90-95 degrees notes with heel slides. Strength Upper Extremity Strength Assessment Within Functional Limits Lower Extremity Strength Assessment Left Impaired Comments Strength Comments Able to attain good quad set. Difficulty at this time with SLR or TKE. Will review these this pm. Sensation Assessment Sensation Gross Sensation WNL Light Touch Intact Proprioception (Position) Intact Muscle Tone Muscle Tone WNL Yes M6 PT-IP Treatment Start: 09/03/19 10:10 Freq: NEEDED Status: Active Protocol: Document 09/04/19 15:40 GGD (Rec: 09/04/19 16:12 GGD [id number]) Physical Therapy Treatment Exercises Exercises Ankle Pumps,Quad Sets,Heel Slides,Short Arc Quads,Seated Knee Flexion/Extension M7 PT-IP Assessment and Plan Start: 09/03/19 10:10 Freq: NEEDED Status: Active Protocol: Document 09/04/19 15:40 GGD (Rec: 09/04/19 16:12 GGD [id number]) PT Summary Assessment and Plan Summary Assessment Summary Pt improved with stair mobility. He did have LOB with it to stand. Pt does need stair review if D/C home, due to having 2 high steps to enter RV. Frequency of Treatment Frequency Of Treatment Twice a Day Treatment Plan Physical Therapy Treatment Plan Bed Mobility Training,Transfer Training,Gait Training, Therapeutic Exercise,Balance Retraining,Post Op Education, Discharge Planning, Coordination Retraining Recommendations To Nursing Amount of Assist Needed 1 Person Assist Discharge Recommendations PT Discharge Recommendations Home with Assistance,SNF Rehab
[2019-09-04 15:47] VITALS: BP 151/67; PULSE 80; RESP 16; TEMP 37.8; O2SAT 95
[2019-09-04 19:39] VITALS: BP 173/74; PULSE 93; RESP 18; TEMP 37.8; O2SAT 96
[2019-09-04] MEDS: RIVAROXABAN 10 MG TABLET 20 MG PO (20:16)
[2019-09-04] MEDS: CANDESARTAN 16 MG TABLET 32 MG PO (20:17)
[2019-09-04] MEDS: ATORVASTATIN 20 MG TABLET PO (20:17)
[2019-09-04] MEDS: TERAZOSIN 5 MG CAPSULE 10 MG PO (20:18)
[2019-09-04 23:34] VITALS: BP 127/71; PULSE 78; RESP 16; TEMP 37.3; O2SAT 96
--- NOTE | 2019-09-04 23:40 | PC.NURSE ---
Addendum entered by Ronda Ray R.N. 09/05/19 07:07: Complains of 4/10 headache so medicated with morning scheduled dose of Tylenol. Addendum entered by Ronda Ray R.N. 09/05/19 06:06: Slept most of shift. States pain is still only 2/10 and declines offer of pain medication and/or ice pack. SCD's removed per patient request; reminded to ankle wave Original Note: Patient is alert and oriented. Breath sounds CTA with RA sat of 96%. HRR. Denies nausea. BT hypoactive but still passing flatus and had BM 10/3. Voiding per urinal; denies dysuria, frequency or urgency. Requests denisse be removed from left knee stating Narcisa said it could come off. Noted to have spots of drainage at distal portion of dressing. Chronic bilateral foot neuropathy but otherwise CMS is intact. Is able to do straight leg raises off bed. States pain is currently at 2/10 but declines pain med and/or ice pack. Wearing foot SCD's. Fall risk score is high and bed alarm is activated. Noted to continue to run low grade temp at 99.2 (100.1 earlier) so reminded to CDB when awake and encouraged use of I.S.
[2019-09-05 05:45] VITALS: BP 157/73; PULSE 87; RESP 16; TEMP 37; O2SAT 97
[2019-09-05] MEDS: ACETAMINOPHEN 325 MG TABLET 975 MG PO ×2 (06:37→14:35)
[2019-09-05 07:40] VITALS: BP 152/82; PULSE 102; RESP 18; TEMP 37.2; O2SAT 93
[2019-09-05] MEDS: INSULIN ASPART 100 UNIT/ML INSULN PEN SUBCUT ×2 (07:53→13:04)
[2019-09-05] MEDS: Insulin Glargine U-300 Conc [Toujeo Max U-300 Solostar] 46 EACH SUBCUT (07:54)
[2019-09-05] MEDS: METOPROLOL IR 25 MG TABLET PO (08:01)
[2019-09-05 11:25] VITALS: BP 161/74; PULSE 85; RESP 20; TEMP 37; O2SAT 96
--- NOTE | 2019-09-05 12:08 | PT.IPTN ---
Current Diagnoses Unilateral primary osteoarthritis, left knee (09/02/19) Presence of right artificial knee joint (09/02/19) Surgery Performed Operation Date: 09/02/19 13:15 Actual Procedures p Total Knee Arthroplasty LEFT(Left) - Uriel Angeles MD Physical Therapy Treatment Note M2 PT-IP Current Condition Start: 09/03/19 10:10 Freq: NEEDED Status: Discharge Protocol: Document 09/03/19 10:11 NFW (Rec: 09/03/19 10:39 NFW [id number]) Physical Therapy Current Condition Current Condition Evaluation Date 09/03/19 Treatment Diagnosis s/p Left TKA secondary to OA Weight Bearing Status Weight Bearing Status Full Weight Bearing M3 PT-IP Subjective Start: 09/03/19 10:10 Freq: NEEDED Status: Discharge Protocol: Document 09/05/19 12:08 AB (Rec: 09/05/19 15:14 AB [id number]) Subjective Physical Therapy Visit Type Type Treatment Note Visit Start Time 12:08 Visit Stop Time 12:55 Total Visit Minutes 47 Number of COMMUNICATIONS ADMINISTRATOR Visits 0 Physical Therapy Visit Comments Patient Comments pt agreeable to do PT Therapy Pain Assessment Pain When Pain Assessed At Rest Pain Present Pain Present Pain Reported Location Left Knee Intensity 5 Scale Used Numeric (1 - 10) Pain Management Techniques Timing of Activity with Medications M4 PT-IP Mobility and Gait Start: 09/03/19 10:10 Freq: NEEDED Status: Discharge Protocol: Document 09/05/19 12:08 AB (Rec: 09/05/19 15:14 AB [id number]) PT-Bed Mobility Assessment Sit to Supine Sit to Supine Standby Assistance PT-Transfer Assessment Sit to and From Stand Sit to and from Stand Contact Guard Assistance,1 Person Assistance,Use of Upper Extremities Equipment Transfer Assistive Device Gait Belt,Front Wheeled Walker Orthotic/Prosthetic Devices or Brace: No Comments Mobility Comments pt sitting on chair and agreeable to do PT. completed sit to stand and requiring CGA and unsteady. educated pt on sit<>stand techniques and completed x 3 reps requiring SBA to CGA and cues. caregiver training conducted. educated spouse on how to use safety belt and how to assist pt. pt ambulated in room using FWW ~ 30 ft with cues to activate quads. pt ambulated in the hallway and spouse provided CGA. occasional cues given for steadiness and safety. pt completed ~ 125 ft . stair climbing training conducted and pt requiring min A and max cues. pt holding ot R rail with B hands . pt stating feeling a little faint maybe due to his blood sugar but blood sugar for 200. pt completed up/down stair again with spouse assisting and completed. will need to do more stair training next tx session. pt assisted back to his room and ambulated to the bed using FWW CGA ~ 10 ft. completed sit to supine SBa. call light and table placed within reach . Gait Assessment Gait Gait Assistance Required: Contact Guard Assist Distance (Feet) 125 Assistive Devices Assistive Device Gait Belt,Front Wheeled Walker Orthotic/Prosthetic Devices or Brace: No Gait Deviations General Gait Pattern Antalgic,Decreased Stride Length,Decreased Feet Clearance Factors Limiting Gait Function Factors Limiting Gait Function Decreased Activity Tolerance, Decreased Sensation,Decreased Strength,Limited Range of Motion,Pain,Poor Balance,Poor Safety Awareness Stair Climbing Assessment Evaluation Level of Assist On Stairs Minimal Assistance Devices Stair Climbing Assistive Devices Right Railing Technique/Endurance Stair Climbing Direction Ascend and Descend Stair Climbing Technique Step to Step Number of Steps Climbed 3 Stair Climbing Set # Repetitions (reps) 2 M5 PT-IP Objective Assessments Start: 09/03/19 10:10 Freq: NEEDED Status: Discharge Protocol: Document 09/03/19 10:11 NFW (Rec: 09/03/19 10:39 NF [id number]) Orientation Orientation/Cognition Level of Alertness Alert Orientation Name,Age,Place,Situation Language Function Ability No Deficits Noted Safety Awareness Understands Safety Issues Memory Description No Deficits Noted Gross Range of Motion Lower Extremity ROM Assessment Left Impaired Impairments Full functional knee extension . Flexion approximately 90-95 degrees notes with heel slides. Strength Upper Extremity Strength Assessment Within Functional Limits Lower Extremity Strength Assessment Left Impaired Comments Strength Comments Able to attain good quad set. Difficulty at this time with SLR or TKE. Will review these this pm. Sensation Assessment Sensation Gross Sensation WNL Light Touch Intact Proprioception (Position) Intact Muscle Tone Muscle Tone WNL Yes M6 PT-IP Treatment Start: 09/03/19 10:10 Freq: NEEDED Status: Discharge Protocol: Document 09/05/19 12:08 AB (Rec: 09/05/19 15:14 AB [id number]) Physical Therapy Treatment Education Education Provided Weight Bearing Status,Safety M7 PT-IP Assessment and Plan Start: 09/03/19 10:10 Freq: NEEDED Status: Discharge Protocol: Document 09/05/19 12:08 AB (Rec: 09/05/19 15:14 AB [id number]) PT Summary Assessment and Plan Potential Rehabilitation Potential Good Summary Impairments Pain,ROM,Strength,Balance, Coordination,Bed Mobility, Transfers,Gait,Activity Tolerance Progress Towards Goals Progressing Toward Goals Assessment Summary caregiver training conducted. spouse was able to assist pt with transfers and ambulation but will require further training with stairs. pt plans to go home later today and spouse will assist pt at home. Goals Bed Mobility Goal Standby Assistance Transfer Goal Standby Assistance,Front Wheeled Walker Gait Goal Standby Assistance,Front Wheel Walker Gait Distance 300 Days to Meet Goals 5 Frequency of Treatment Frequency Of Treatment Twice a Day Treatment Plan Physical Therapy Treatment Plan Bed Mobility Training,Transfer Training,Gait Training, Therapeutic Exercise,Balance Retraining,Post Op Education, Discharge Planning, Coordination Retraining Recommendations To Nursing Amount of Assist Needed 1 Person Assist Discharge Recommendations PT Discharge Recommendations Home with Assistance, Outpatient PT
--- NOTE | 2019-09-05 14:29 | PT.IPTN ---
Current Diagnoses Unilateral primary osteoarthritis, left knee (09/02/19) Presence of right artificial knee joint (09/02/19) Surgery Performed Operation Date: 09/02/19 13:15 Actual Procedures p Total Knee Arthroplasty LEFT(Left) - Uriel Angeles MD Physical Therapy Treatment Note M2 PT-IP Current Condition Start: 09/03/19 10:10 Freq: NEEDED Status: Discharge Protocol: Document 09/03/19 10:11 NFW (Rec: 09/03/19 10:39 NFW [id number]) Physical Therapy Current Condition Current Condition Evaluation Date 09/03/19 Treatment Diagnosis s/p Left TKA secondary to OA Weight Bearing Status Weight Bearing Status Full Weight Bearing M3 PT-IP Subjective Start: 09/03/19 10:10 Freq: NEEDED Status: Discharge Protocol: Document 09/05/19 14:29 AB (Rec: 09/05/19 15:20 AB [id number]) Subjective Physical Therapy Visit Type Type Treatment Note Visit Start Time 14:29 Visit Stop Time 14:53 Total Visit Minutes 24 Number of VACCINES SOLUTIONS SPECIALIST Visits 0 M4 PT-IP Mobility and Gait Start: 09/03/19 10:10 Freq: NEEDED Status: Discharge Protocol: Document 09/05/19 14:29 AB (Rec: 09/05/19 15:20 AB [id number]) PT-Bed Mobility Assessment Supine to Sit Supine to Sit Standby Assistance PT-Transfer Assessment Sit to and From Stand Sit to and from Stand Contact Guard Assistance,1 Person Assistance Equipment Transfer Assistive Device Gait Belt,Front Wheeled Walker Orthotic/Prosthetic Devices or Brace: No Gait Assessment Gait Gait Assistance Required: Contact Guard Assist Distance (Feet) 125 Able to Maintain Weight Bearing Status Yes During Gait Assistive Devices Assistive Device Gait Belt,Front Wheeled Walker Orthotic/Prosthetic Devices or Brace: No Gait Deviations General Gait Pattern Antalgic,Decreased Stride Length,Decreased Feet Clearance Factors Limiting Gait Function Factors Limiting Gait Function Decreased Activity Tolerance, Decreased Strength,Limited Range of Motion,Pain,Poor Balance,Poor Safety Awareness Comments Gait Comments caregiver training conducted. pt's spouse was able to put safety belt on and assisted pt with ambulation using FWW. Stair Climbing Assessment Evaluation Level of Assist On Stairs Minimal Assistance,1 Person Assistance Devices Stair Climbing Assistive Devices Right Railing Technique/Endurance Stair Climbing Direction Ascend and Descend Stair Climbing Technique Step to Step Number of Steps Climbed 3 Stair Climbing Set # Repetitions (reps) 1 Comments Stair Climbing Comments spouse was able to assist pt with steps M5 PT-IP Objective Assessments Start: 09/03/19 10:10 Freq: NEEDED Status: Discharge Protocol: Document 09/03/19 10:11 NFW (Rec: 09/03/19 10:39 NFW [id number]) Orientation Orientation/Cognition Level of Alertness Alert Orientation Name,Age,Place,Situation Language Function Ability No Deficits Noted Safety Awareness Understands Safety Issues Memory Description No Deficits Noted Gross Range of Motion Lower Extremity ROM Assessment Left Impaired Impairments Full functional knee extension . Flexion approximately 90-95 degrees notes with heel slides. Strength Upper Extremity Strength Assessment Within Functional Limits Lower Extremity Strength Assessment Left Impaired Comments Strength Comments Able to attain good quad set. Difficulty at this time with SLR or TKE. Will review these this pm. Sensation Assessment Sensation Gross Sensation WNL Light Touch Intact Proprioception (Position) Intact Muscle Tone Muscle Tone WNL Yes M6 PT-IP Treatment Start: 09/03/19 10:10 Freq: NEEDED Status: Discharge Protocol: Document 09/05/19 14:29 AB (Rec: 09/05/19 15:20 AB [id number]) Physical Therapy Treatment Education Education Provided Safety M7 PT-IP Assessment and Plan Start: 09/03/19 10:10 Freq: NEEDED Status: Discharge Protocol: Document 09/05/19 14:29 AB (Rec: 09/05/19 15:20 AB [id number]) PT Summary Assessment and Plan Potential Rehabilitation Potential Good Summary Impairments Pain,ROM,Strength,Balance, Coordination,Sensation,Tone, Cognition,Bed Mobility, Transfers,Gait,Activity Tolerance Progress Towards Goals Progressing Toward Goals Assessment Summary caregiver conducted and spouse was able to assist pt. pt plans to go home today. Goals Bed Mobility Goal Standby Assistance Transfer Goal Standby Assistance,Front Wheeled Walker Gait Goal Standby Assistance,Front Wheel Walker Gait Distance 300 Days to Meet Goals 5 Frequency of Treatment Frequency Of Treatment Twice a Day Treatment Plan Physical Therapy Treatment Plan Bed Mobility Training,Transfer Training,Gait Training, Therapeutic Exercise,Balance Retraining,Post Op Education, Discharge Planning, Coordination Retraining Recommendations To Nursing Amount of Assist Needed 1 Person Assist Discharge Recommendations PT Discharge Recommendations Home with Assistance,Home Health,Outpatient PT
[2019-09-05] MEDS: OXYCODONE IR 5 MG TABLET 10 MG PO (14:35)
--- NOTE | 2019-09-05 14:42 | CM.DPNOTE ---
DCP: met with Patient at bedside patients D/c plan is to d/c home today with assistance from significant other(Kayla) with OP PT. Patient stated he is ready to go home and significant other was getting patients RXs. Went to [facility] [place] and scheduled priority Boarding for ferry [facility] for 430pm ferry today 09/05/2019. No other D/C needs noted at this time. Lena Combs RN
== END 2019-09-05 15:05 | disposition home or self-care (01) | DRG 470 ==
PROVIDERS: Admitting Provider Orthopaedic Surgery; PCP Student in an Organized Health Care Education/Training Program; Visit Provider Orthopaedic Surgery
PROC: 0SRD0JZ Replacement of Left Knee Joint with Synthetic Substitute, Open Approach (ICD-10-PCS; CPT 27447; principal; 2019-09-02 13:15)
DX: M17.12 Unilateral primary osteoarthritis, left knee (principal); I48.92 Unspecified atrial flutter; E10.319 Type 1 diabetes mellitus with unspecified diabetic retinopathy without macular edema; I10 Essential (primary) hypertension; E78.5 Hyperlipidemia, unspecified; Z96.651 Presence of right artificial knee joint; E66.9 Obesity, unspecified; G47.33 Obstructive sleep apnea (adult) (pediatric); Z68.37 Body mass index [BMI] 37.0-37.9, adult; Z79.01 Long term (current) use of anticoagulants
CPT/HCPCS: 36415; 64447; 73560; 82962; 85014; 85018; 97110; 97116; 97161; 97530; C1776; C9290; J0690; J1100; J2250; J2405; J2704; J3010

== ENCOUNTER 2023-09-05 12:24 | Emergency (ER) | payer MEDICARE, SELFPAY ==
[2023-09-05] VITALS (36 sets, daily range): BP systolic 100–151; BP diastolic 58–74; PULSE 76–178; RESP 4–25; TEMP 37.2; O2SAT 81–100; BMI 37.3
--- NOTE | 2023-09-05 12:25 | PC.NURSE ---
Pt transferred to [facility] at registration desk. Upon wheeling into triage, pt states I don't feel good. Pt had near syncopal episode, staff emergency button pushed and pt taken to room 1 with provider at bedside. Pt able to transfer to stretcher with assist. States has been feeling fatigue/dizzy. Sent to ED from cardiology appointment. Also reports recent low blood sugars. CBG 53, verbal order for D50 received.
--- NOTE | 2023-09-05 12:34 | DI.RAD.S_ITS ---
PROCEDURE: XR CHEST 1V INDICATIONS: AFib TECHNIQUE: One view of the chest was acquired. COMPARISON: [facility], , CHEST 2 VIEW, 01/22/2017, 13:25. FINDINGS: Surgical changes and devices: None. Lungs and pleura: Lungs are clear. No pleural effusions or pneumothorax. Mediastinum: Superior mediastinal mass. Heart is enlarged. Bones and chest wall: No suspicious bony lesions. Overlying soft tissues appear unremarkable. IMPRESSION: Mediastinal mass. Recommend CT scan of the chest with contrast for additional evaluation. Dictated by: Yara Kline MD, PhD on 09/05/2023 at 13:17 Approved by: Yara Kline MD, PhD on 09/05/2023 at 13:19
--- NOTE | 2023-09-05 12:38 | ED_ITS ---
HPI - Arrhythmia/Palpitations General Chief Complaint: Arrhythmia/Palpitations Stated Complaint: AFIB /FLUTTER 150BPM, CHEST PAIN Time Seen by Provider: 09/05/23 12:33 Source: patient Mode of arrival: Wheelchair Limitations: no limitations History of Present Illness HPI narrative: Patient is a 78-year-old male. Has a history of atrial fibrillation. Is on anticoagulation. He is also been having significant issues with gastroparesis. He had an appointment with his primary leasing agent today. He was found to be tachycardic and hypotensive and generally not feeling very well. He also states that his blood sugar is low. He states he is feeling lightheaded and dizzy. He was ambulatory to the registration desk but had a near syncopal episode in triage. Denies chest pain. Related Data Home Medications Medication Instructions Recorded Confirmed atorvastatin 20 mg tablet 20 mg PO BEDTIME 05/12/19 09/02/19 metoprolol tartrate 25 mg tablet 25 mg PO BID 05/12/19 09/02/19 terazosin 10 mg capsule 10 mg PO BEDTIME 05/12/19 09/02/19 candesartan 32 mg tablet 32 mg PO BEDTIME 08/20/19 09/02/19 insulin glargine U-300 conc 300 46 unit SUBCUT QAM 08/20/19 09/02/19 unit/mL (3 mL) subcutaneous pen (Toujeo Max U-300 SoloStar) insulin lispro 100 unit/mL 8 - 20 unit SUBCUT TID 08/20/19 09/02/19 subcutaneous pen (Humalog KwikPen (U-100) Insulin) rivaroxaban 20 mg tablet (Xarelto) 20 mg PO BEDTIME 08/20/19 09/02/19 Previous Rx's Medication Instructions Recorded acetaminophen 325 mg tablet 975 mg (3 x 325 mg) PO TID #30 tabs 09/04/19 oxycodone 5 mg tablet 10 mg (2 x 5 mg) PO Q3HR PRN Pain, 09/04/19 Moderate (4-6) #40 tabs Allergies Allergy/AdvReac Type Severity Reaction Status Date / Time exenatide Allergy Pt unsure Verified 09/02/19 12:02 of reaction gabapentin Allergy Rash Verified 09/02/19 12:02 lisinopril Allergy Urticaria, Verified 09/02/19 12:02 atopic dermatitis Review of Systems Constitutional Constitutional: Reports system reviewed and no additional complaints, except as documented ENT Ears, Nose, Mouth, and Throat: Reports system reviewed and no additional complaints, except as documented Cardiovascular Cardiovascular: Reports system reviewed and no additional complaints, except as documented Respiratory Respiratory: Reports system reviewed and no additional complaints, except as documented Integumentary/Breasts Skin/Breast: Reports system reviewed and no additional complaints, except as documented Neurologic Neurologic: Reports system reviewed and no additional complaints, except as documented Hematologic/Lymphatic On Anticoagulants: Yes Patient History Medical History Obesity (BMI 30-39.9) Restless legs syndrome (RLS) Atrial flutter Hypoglycemia Anxiety about health Sleep apnea treated with nocturnal BiPAP Memory deficit Diabetes Rhinitis, non-allergic Allergic rhinitis Diabetic retinopathy BPH (benign prostatic hyperplasia) Diabetic neuropathy Hyperlipidemia Hypertension Snoring Surgical History (Updated 08/21/19 @ 12:52 by Judie Em RN) Hx of tonsillectomy H/O transurethral resection of prostate Hx of appendectomy History of arthroplasty of right knee (~2008) Social History marital status: household members: none lives independently: Yes caregiver/support person: No occupational status: previously employed Smoking Status: Never smoker alcohol intake: current substance use type: does not use Smoking Status: Never smoker alcohol intake frequency: holidays/special occasions only Substance Use Type: does not use Exam Initial Vital Signs Initial Vital Signs: Vital Signs Temperature 98.9 F 09/05/23 12:25 Pulse Rate 172 H 09/05/23 12:25 Respiratory Rate 20 09/05/23 12:25 Blood Pressure 127/74 09/05/23 12:25 Pulse Oximetry 100 09/05/23 12:25 Oxygen Delivery Method Room Air 09/05/23 12:25 Const General: cooperative, comfortable and ill appearing [facility] Head: normal to inspection and normocephalic Resp Effort & Inspection: normal respiratory effort Auscultation: clear to auscultation bilaterally Cardio Rate: tachycardic Rhythm: abnormal rhythm GI Inspection: normal to inspection Skin General: no rashes or lesions noted Neuro General: patient alert, patient awake, patient oriented x3 and moves all extremities Extrem General: normal to inspection and capillary refill normal Procedures Cardioversion Consent Signed: Yes Indication: AFib Stability: Unstable Number of attempts (shocks): 1 Joules used: 120 Cardiac rhythm post-cardioversion: Sinus rhythm Procedural Sedation Consent signed: Yes Time out performed: Yes Indication: cardioversion ASA Class: II Mallampati Airway Classification: Class III Preparation: property assessment monitor applied, pulse oximeter, capnometry used, suction/airway equipment at bedside and IV secured IV Propofol dose (mg): 70 Intraservice time/total sedation time (min): 20 ED Sedation Level: Moderate (Concious) Patient Tolerated Procedure: Well Complications: hypoxia Interventions: Airway repositioned and Assist by BVM Course Orders Ordered: ED Orders 09/05/23 12:34 XR chest 1V Stat 09/05/23 12:35 Complete Blood Count AUTO DIFF Stat Comprehensive Metabolic Panel Stat Lipase Stat Magnesium Stat Troponin & CK Cardiac Panel Stat 09/05/23 12:38 EKG-12 Lead Stat 09/05/23 13:09 EKG-12 Lead Stat 09/05/23 14:12 CT chest w con Stat Discontinued Medications Dextrose (Dextrose 50 % In Water 25 Gm/50 Ml Syringe) 25 gm IV NOW ONE Stop: 09/05/23 12:47 Last Admin: 09/05/23 12:46 Dose: 25 gm Documented By: HOLLI Sodium Chloride (Normal Saline 0.9%) 1,000 mls @ 125 mls/hr IV CONT DAVIE Last Admin: 09/05/23 13:24 Dose: 125 mls/hr Documented By: HOLLI Propofol (Propofol 200 Mg/20 Ml Vial) 200 mg IV NOW ONE Stop: 09/05/23 12:34 Last Admin: 09/05/23 12:55 Dose: 70 mg Documented By: HOLLI Vital Signs Vital signs: Vital Signs - 8 hr 09/05/23 12:25 09/05/23 12:31 09/05/23 12:34 Temperature 98.9 F Pulse Rate 172 H 164 H Respiratory Rate 20 23 Blood Pressure 127/74 127/74 Pulse Oximetry 100 Oxygen Delivery Method Room Air Oxygen Flow Rate 09/05/23 12:34 09/05/23 12:35 09/05/23 12:40 Temperature Pulse Rate 170 H 168 H 165 H Respiratory Rate 21 21 19 Blood Pressure Pulse Oximetry 99 99 98 Oxygen Delivery Method Oxygen Flow Rate 09/05/23 12:45 09/05/23 12:50 09/05/23 12:55 Temperature Pulse Rate 160 H 155 H Respiratory Rate 21 11 L Blood Pressure 105/59 L Pulse Oximetry 98 100 Oxygen Delivery Method Oxygen Flow Rate 09/05/23 12:55 09/05/23 13:00 09/05/23 13:00 Temperature Pulse Rate 156 H 98 H Respiratory Rate 12 15 Blood Pressure 115/65 Pulse Oximetry 99 81 L 100 Oxygen Delivery Method Ambu Bag Oxygen Flow Rate 15 09/05/23 13:03 09/05/23 13:05 09/05/23 13:05 Temperature Pulse Rate 92 H Respiratory Rate 18 Blood Pressure 108/62 Pulse Oximetry 99 99 Oxygen Delivery Method Nasal Cannula Nasal Cannula Oxygen Flow Rate 5 2 09/05/23 13:06 09/05/23 13:10 09/05/23 13:10 Temperature Pulse Rate 92 H Respiratory Rate 19 Blood Pressure 103/61 Pulse Oximetry 99 99 Oxygen Delivery Method Room Air Oxygen Flow Rate 09/05/23 13:15 09/05/23 13:15 09/05/23 13:20 Temperature Pulse Rate 92 H 84 Respiratory Rate 22 19 Blood Pressure 101/58 L 105/62 Pulse Oximetry 98 98 Oxygen Delivery Method Oxygen Flow Rate 09/05/23 13:20 09/05/23 13:20 09/05/23 13:25 Temperature Pulse Rate 89 83 Respiratory Rate 22 25 H Blood Pressure 105/62 Pulse Oximetry 97 98 Oxygen Delivery Method Oxygen Flow Rate 09/05/23 13:25 09/05/23 13:30 09/05/23 13:30 Temperature Pulse Rate 91 H Respiratory Rate 24 Blood Pressure 109/62 104/60 Pulse Oximetry 98 Oxygen Delivery Method Oxygen Flow Rate 09/05/23 13:35 09/05/23 13:35 09/05/23 13:40 Temperature Pulse Rate 83 Respiratory Rate 21 Blood Pressure 112/65 115/63 Pulse Oximetry 99 Oxygen Delivery Method Oxygen Flow Rate 09/05/23 13:40 09/05/23 13:45 09/05/23 13:45 Temperature Pulse Rate 81 80 Respiratory Rate 16 18 Blood Pressure 110/62 Pulse Oximetry 98 99 Oxygen Delivery Method Oxygen Flow Rate 09/05/23 13:50 09/05/23 13:55 09/05/23 13:58 Temperature Pulse Rate 82 81 178 H Respiratory Rate 21 19 18 Blood Pressure Pulse Oximetry 99 99 Oxygen Delivery Method Oxygen Flow Rate 10/05/23 14:00 09/05/23 14:00 09/05/23 14:05 Temperature Pulse Rate 81 84 Respiratory Rate 4 L 17 Blood Pressure 107/65 Pulse Oximetry 99 97 Oxygen Delivery Method Oxygen Flow Rate 09/05/23 14:10 09/05/23 14:15 09/05/23 14:15 Temperature Pulse Rate 85 79 Respiratory Rate 17 12 Blood Pressure 100/62 Pulse Oximetry 99 99 Oxygen Delivery Method Oxygen Flow Rate 09/05/23 14:32 09/05/23 14:32 09/05/23 14:35 Temperature Pulse Rate 80 79 Respiratory Rate 12 19 Blood Pressure 147/69 H Pulse Oximetry 100 99 Oxygen Delivery Method Oxygen Flow Rate 09/05/23 14:40 09/05/23 14:45 09/05/23 14:45 Temperature Pulse Rate 78 81 Respiratory Rate 7 L 11 L Blood Pressure 132/67 Pulse Oximetry 98 95 Oxygen Delivery Method Oxygen Flow Rate 09/05/23 14:50 09/05/23 15:00 09/05/23 15:00 Temperature Pulse Rate 78 76 Respiratory Rate 12 14 Blood Pressure 131/67 Pulse Oximetry 97 98 Oxygen Delivery Method Room Air Oxygen Flow Rate 09/05/23 15:15 09/05/23 15:15 09/05/23 15:30 Temperature Pulse Rate 80 Respiratory Rate 21 Blood Pressure 130/63 151/69 H Pulse Oximetry 98 Oxygen Delivery Method Oxygen Flow Rate 09/05/23 15:30 09/05/23 15:45 09/05/23 15:45 Temperature Pulse Rate 80 83 Respiratory Rate 17 20 Blood Pressure 140/67 Pulse Oximetry 99 98 Oxygen Delivery Method Oxygen Flow Rate MDM - Arrhythmia/Palpitations Medical Records Attestation: I reviewed the patient's medical records. Lab Data Attestation: I reviewed the patient's lab results. 09/05/23 12:35 09/05/23 12:35 Labs: Lab Results 09/05/23 Range/Units 12:35 WBC 7.5 (4.5-11.0) X10^3/uL RBC 4.70 (4.5-5.9) X10^6/uL Hgb 13.4 L (13.5-17.5) g/dL Hct 39.7 L (41-53) % MCV 84.5 (80-100) fL MCH 28.4 (26-34) PG MCHC 33.6 (30-36) % RDW 14.6 (11.6-14.8) % Plt Count 223 (150-400) X10^3/uL Neut % (Auto) 71.7 (50-75) % Lymph % (Auto) 19.0 L (25-40) % [place] % (Auto) 7.8 (3-14) % Eos % (Auto) 0.8 L (2-4) % Baso % (Auto) 0.7 (0-2) % Neut # (Auto) 5400 (9117-1504) /uL Lymph # (Auto) 1400 (9055-2534) /uL [place] # (Auto) 600 (0-900) /uL Eos # (Auto) 100 (0-450) /uL Baso # (Auto) 100 (0-100) /uL Sodium 139 (137-145) mmol/L Potassium 3.6 (3.4-5.1) mmol/L Chloride 102 (98-107) mmol/L Carbon Dioxide 26 (22-32) mmol/L BUN 9 (9-20) mg/dL Creatinine 1.23 (0.66-1.25) mg/dL Estimated GFR 60 (>60) mL/min BUN/Creatinine Ratio 7.3 (6-22) Glucose 49 L (80-110) mg/dL Calcium 9.3 (8.4-10.2) mg/dL Magnesium 1.9 (1.6-2.3) mg/dL Total Bilirubin 0.5 (0.2-1.3) mg/dL AST 22 (17-59) IU/L ALT 17 (<50) IU/L Alkaline Phosphatase 82 (38-126) U/L Total Creatine Kinase 51 L (55-170) U/L Troponin I 0.014 (0.01-0.034) ng/mL Total Protein 7.3 (6.3-8.2) g/dL Albumin 3.9 (3.5-5.0) g/dL Globulin 3.4 (1.7-4.1) g/dL Albumin/Globulin Ratio 1.1 (1.0-2.8) Lipase 38 (23-300) U/L Point of Care Testing Glucose POC 105 Imaging Data Chest x-ray: Radiologist's Impresson: PROCEDURE: XR CHEST 1V INDICATIONS: AFib TECHNIQUE: One view of the chest was acquired. COMPARISON: [facility], CHEST 2 VIEW, 01/22/2017, 13:25. FINDINGS: Surgical changes and devices: None. Lungs and pleura: Lungs are clear. No pleural effusions or pneumothorax. Mediastinum: Superior mediastinal mass. Heart is enlarged. Bones and chest wall: No suspicious bony lesions. Overlying soft tissues appear unremarkable. IMPRESSION: Mediastinal mass. Recommend CT scan of the chest with contrast for additional evaluation. CT scan - chest: Radiologist's Impresson: PROCEDURE: CT CHEST W CON INDICATIONS: Mediastinal mass noted on chest x-ray TECHNIQUE: After the administration of intravenous contrast, 5 mm thick sections acquired from the pulmonary apices to the posterior costophrenic angles. 1 mm axial lung, 5 mm thick coronal and sagittal reformats and 7 mm axial MIP were acquired. For radiation dose reduction, the following was used: automated exposure control, adjustment of mA and/or kV according to patient size. COMPARISON: [facility], XR CHEST 1V, 09/05/2023, 12:31. FINDINGS: Image quality: Excellent. Lungs and pleura: No acute air space opacities. No pleural effusions or pneumothorax. Central and peripheral airways are patent and normal in caliber. Mediastinum: Heart size is normal. No pericardial effusion. No mediastinal or hilar adenopathy by size criteria. Thoracic aorta and central pulmonary arteries are normal in size. Esophagus is markedly distended with lumen heterogenous with air and apparent debris. No visualized distal mass or source of obstruction. No hiatal hernia. Bones and chest wall: No suspicious bony lesions. No vertebral body compression fractures. No axillary or supraclavicular adenopathy by size criteria. Thyroid gland demonstrates a punctate focus of left lobe. Abdomen: Simple right renal cyst. Otherwise, visualized upper abdominal solid organs appear normal. Upper abdominal bowel loops are normal in caliber. IMPRESSION: Markedly distended esophagus with air and presumed debris. No visualized source of obstruction. Further evaluation with endoscopy is recommended. Low attenuation thyroid focus, indeterminate. Thyroid ultrasound may be obtained, as clinically indicated. ECG Data Attestation: I personally reviewed and interpreted this ECG as follows: Interpretation: Atrial fibrillation Ventricular rate [address] T wave changes Sinus rhythm Ventricular rate [address] T wave changes MDM Narrative Medical decision making narrative: Patient was considered unstable because he did have a episode of hypotension and a presyncopal episode in triage. We discussed the risks and benefits of a cardioversion. He agreed to the cardioversion. Who were successful cardiovert him as described above. On his chest x-ray there was concern about a mediastinal mass. He recently had a CT scan but this was of his abdomen and pelvis not of his chest. A CT scan was ordered. It does show a distended esophagus. He states he can eat soft things to include ice cream and mashed potatoes and can drink but has difficulty with anything more solid than this. He is an appointment with GI already scheduled for tomorrow. I did discuss the CT scan findings with him. He was given a copy of the CT scan on a CD so that he can take it to his GI doctor. I suspect that he will need an endoscopy. Will not change any of his other cardiac medications. He was given return precautions. He expressed understanding and agreement. Discharge Plan Departure Patient Disposition: Home Clinical Impression: Atrial fibrillation Instructions: DI for Atrial Fibrillation Activity Restrictions/Additional Instructions: Continue to take all of your medications as directed. I recommend that you keep your appointment that you as scheduled tomorrow with the GI doctor. Return to the emergency department for new or worsening symptoms. Prescriptions: No Action candesartan 32 mg Tablet 32 mg PO BEDTIME insulin lispro [Humalog KwikPen Insulin] 100 unit/mL Insulin Pen 8 - 20 unit SUBCUT TID Toujeo Max U-300 SoloStar 300 unit/mL (3 mL) Insulin Pen 46 unit SUBCUT QAM Xarelto 20 mg Tablet 20 mg PO BEDTIME acetaminophen 325 mg Tablet 975 mg PO TID Qty: 30 0RF oxycodone 5 mg Tablet 10 mg PO Q3HR PRN (Reason: Pain, Moderate (4-6)) Qty: 40 0RF atorvastatin 20 mg tablet 20 mg PO BEDTIME terazosin 10 mg capsule 10 mg PO BEDTIME metoprolol tartrate 25 mg tablet 25 mg PO BID Referrals: Myles Knott MD [Primary Care Provider] - Stand Alone Forms: Patient Portal/API
[2023-09-05] MEDS: DEXTROSE 50 % IN WATER 25 GM/50 ML SYRINGE IV (12:46)
[2023-09-05 12:49] LABS: Add Manual Diff / Slide Review NO; Basophils Absolute Auto 100 /uL (0-100); Basophils Percent Auto 0.7 % (0-2); Eosinophils Absolute Auto 100 /uL (0-450); Eosinophils Percent Auto 0.8 % (2-4); Hematocrit 39.7 % (41-53); Hemoglobin 13.4 g/dL (13.5-17.5); Lymphocytes Absolute Auto 1400 /uL (1100-4500); Mean Corpuscular HGB Conc 33.6 % (30-36); Mean Corpuscular Hemoglobin 28.4 PG (26-34); Mean Corpuscular Volume 84.5 fL (80-100); Monocytes Absolute Auto 600 /uL (0-900); Monocytes Percent Auto 7.8 % (3-14); Neutrophils Absolute Auto 5400 /uL (1500-7000); Neutrophils Percent Auto 71.7 % (50-75); Platelet Count 223 X10^3/uL (150-400); Red Cell Distribution Width 14.6 % (11.6-14.8); White Blood Cell Count 7.5 X10^3/uL (4.5-11.0)
[2023-09-05] MEDS: propofoL 200 MG/20 ML VIAL IV (12:55)
[2023-09-05 13:20] LABS: Alanine Aminotransferase 17 IU/L (<50); Albumin 3.9 g/dL (3.5-5.0); Albumin Globulin Ratio 1.1 (1.0-2.8); Alkaline Phosphatase 82 U/L (38-126); Aspartate Aminotransferase 22 IU/L (17-59); BUN Creatinine Ratio 7.3 (6-22); Bilirubin Total 0.5 mg/dL (0.2-1.3); Blood Urea Nitrogen 9 mg/dL (9-20); Calcium 9.3 mg/dL (8.4-10.2); Carbon Dioxide 26 mmol/L (22-32); Chloride 102 mmol/L (98-107); Creatine Kinase 51 U/L (55-170); Estimated Glomerular Filt Rate 60 mL/min (>60); Globulin 3.4 g/dL (1.7-4.1); Glucose 49 mg/dL (80-110); HEMOLYSIS 18 (0-50); Lipase 38 U/L (23-300); Magnesium 1.9 mg/dL (1.6-2.3); Potassium 3.6 mmol/L (3.4-5.1); Sodium 139 mmol/L (137-145); Total Protein 7.3 g/dL (6.3-8.2)
[2023-09-05] MEDS: SODIUM CHLORIDE 0.9% 1,000 ML 125 ML IV (13:24)
[2023-09-05 13:31] LABS: Troponin I 0.014 ng/mL (0.01-0.034)
--- NOTE | 2023-09-05 13:31 | PC.NURSE ---
Time out for cardioversion called at 1254. 70mg of propofol pushed by Dr Alegre at 1255 and shock delivered. Pt required 15L with mechanical bag ventilation done by RT. 1258 pt sating 81% on 15L and nasal trumpet placed by Dr Alegre while RT resumed bag ventilation. At 1303 pt breathing independently and no longer requried bag ventilation but nasal trumpet remained in place and pt still on 5L NC. O2 reduced to 2L NC at 1306 and nasal trumpet removed. Pt able to maintain O2 sat of 99% on RA. Pt A&O x4.
--- NOTE | 2023-09-05 14:12 | DI.CT.S_ITS ---
PROCEDURE: CT CHEST W CON INDICATIONS: Mediastinal mass noted on chest x-ray TECHNIQUE: After the administration of intravenous contrast, 5 mm thick sections acquired from the pulmonary apices to the posterior costophrenic angles. 1 mm axial lung, 5 mm thick coronal and sagittal reformats and 7 mm axial MIP were acquired. For radiation dose reduction, the following was used: automated exposure control, adjustment of mA and/or kV according to patient size. COMPARISON: [facility], CR, XR CHEST 1V, 09/05/2023, 12:31. FINDINGS: Image quality: Excellent. Lungs and pleura: No acute air space opacities. No pleural effusions or pneumothorax. Central and peripheral airways are patent and normal in caliber. Mediastinum: Heart size is normal. No pericardial effusion. No mediastinal or hilar adenopathy by size criteria. Thoracic aorta and central pulmonary arteries are normal in size. Esophagus is markedly distended with lumen heterogenous with air and apparent debris. No visualized distal mass or source of obstruction. No hiatal hernia. Bones and chest wall: No suspicious bony lesions. No vertebral body compression fractures. No axillary or supraclavicular adenopathy by size criteria. Thyroid gland demonstrates a punctate focus of left lobe. Abdomen: Simple right renal cyst. Otherwise, visualized upper abdominal solid organs appear normal. Upper abdominal bowel loops are normal in caliber. IMPRESSION: Markedly distended esophagus with air and presumed debris. No visualized source of obstruction. Further evaluation with endoscopy is recommended. Low attenuation thyroid focus, indeterminate. Thyroid ultrasound may be obtained, as clinically indicated. Dictated by: Liyah Adamson M.D. on 09/05/2023 at 15:04 Approved by: Liyah Adamson M.D. on 09/05/2023 at 15:14
== END 2023-09-05 15:51 | disposition home or self-care (01) ==
PROVIDERS: Emergency Provider Emergency Medicine; PCP Student in an Organized Health Care Education/Training Program
DX: I48.91 Unspecified atrial fibrillation (principal); Z79.01 Long term (current) use of anticoagulants
CPT/HCPCS: 36415; 71045; 71260; 80053; 82550; 82962; 83690; 83735; 84484; 85025; 92960; 93005; 99152; 99285; 99291; J2704; Q9967